=== PATIENT | female | born 1945 | race African-American/Black ===

== ENCOUNTER 2017-02-19 10:48 | Inpatient (IN) | payer MEDICARE, MEDICAID ==
[2017-02-19] MEDS ORDERED: Albuterol Sulfate 2.5 mg/3 ml Neb ONE (11:07)
[2017-02-19] MEDS ORDERED: Albuterol Sulfate 2.5 mg/0.5 ml Neb ONE (11:08)
[2017-02-19] MEDS ORDERED: methylPREDNISolone Sod Succ/PF 125 MG/2 ML VIAL ONE (11:15)
[2017-02-19] MEDS ORDERED: Water For Inject, Bacteriostat 30 ML ONE (11:15)
[2017-02-19] MEDS ORDERED: Magnesium Sulfate 2 GM/100 ML BAG ONE (11:15)
--- NOTE | 2017-02-19 11:19 | RAD ---
AP VIEW OF CHEST: Date: 02/19/17 INDICATION: Difficulty breathing and wheezing. COMPARISON: Prior exam dated 02/17/17. FINDINGS: There is stable mild cardiomegaly. No air space consolidation or pleural effusion is evident. No acut e osseous abnormality is evident. IMPRESSION: No acute cardiopulmonary abnormality. Stable cardiomegaly. POS: [facility]
[2017-02-19 11:20] LABS: #Basophils 0.1 thou/uL (0.0-0.2); #Eosinphils 0.1 thou/uL (0.0-0.7); #Lymphocytes 1.5 thou/uL (1.20-3.40); #Monocytes 0.6 thou/uL (0.11-0.59); %Basophils 0.9 % (0.0-1.0); %Eosinophils 0.8 % (0.0-10.0); %Lymphocytes 24.3 % (21.0-51.0); Hematocrit 35.4 % (36.0-47.0); Mean Platelet Volume 8.6 fL (7.4-10.4); Red Blood Cell (RBC) Count 3.71 mill/uL (4.20-5.40); White Blood Cell (WBC) Count 6.2 thou/uL (4.8-10.8)
[2017-02-19 11:33] LABS: ALT (SGPT) 24 U/L (8-55); AST (SGOT) 23 U/L (5-34); Alkaline Phosphatase 81 U/L (40-150); Anion Gap 11 mmol/L (10-20); BUN (Urea Nitrogen) 10 mg/dL (9.8-20.1); Bilirubin, Total 0.2 mg/dL (0.2-1.2); CK (CPK) 346 U/L (29-168); Calc. Creatinine Clearance 0 mL/min (70-130); Calcium 9.3 mg/dL (7.8-10.44); Carbon Dioxide 28 mmol/L (23-31); Chloride 106 mmol/L (98-107); Estimated GFR-MDRD 77; Globulin 3.8 g/dL (2.4-3.5); Protein, Total 7.4 g/dL (6.0-8.3)
[2017-02-19 11:37] LABS: Troponin I Less than 0.010 ng/mL (< 0.028)
--- NOTE | 2017-02-19 13:19 | HP ---
CHIEF COMPLAINT: Shortness of breath and cough. HISTORY OF PRESENT ILLNESS: The patient is a 71-year-old female who is admitted to the hospital with a few day history of productive cough with some chills and the patient felt feveris h. The above symptoms did not get any better after she visited emergency room in [place] a few days ago when she was placed on steroids and breathing treatments so the family decided to bring her to [facility] emergency room in [place]. There was not any nausea or vomiting. She has some headaches in the fro nt and the top of the head and her cough is productive of a mucous, no greenish yellowish color. PAST MEDICAL HISTORY: 1. Asthma. 2. Congestive heart failure. 3. Acid reflux. 4. Hyperlipidemia. 5. Hypertension. ALLERGIES: MORPHINE, BLOOD THINNERS of unclear type, ASPIRIN. Apparently increases the blood pressu re. Also, TRAMADOL causing the swelling, IBUPROFEN and NITROGLYCERIN. PAST SURGICAL HISTORY: Cholecystectomy. CURRENT MEDICATIONS: Omeprazole 20 mg once a day, ramipril 10 mg once a day, amiodarone 100 mg once a day and fluid pill, she does not know the name and the dose. FAMILY HISTORY: Father of prostate cancer at the age of 86 and mother was 85 when she passed of colon cancer. SOCIAL HISTORY: She never smoked. She does not drink any alcohol. She does not use any illicit [place] gs. REVIEW OF SYSTEMS: CONSTITUTIONAL. Positive for fever and chills. EYES: Negative for eye pain and positive for some eye discharge which is clear. ENT: Negative for epistaxis and nasal congestion. CARDIOVASCULAR: Negative for palpitations and chest pain. RESPIRATORY: Positive for shortness of breath and cough. GASTROINTESTINAL: Negative for nausea and vomiting. GENITOURINARY: Negative for hematuria and dysuria. DERMATOLOGY: Negative for itching or rash. NEUROLOGIC: Positive for headache. Negative for any focal deficits or numbness. PSYCHIATRIC: Negative for anxiety or depression. PHYSICAL EXAMINATION: VITAL SIGNS: Blood pressure is 145/62, pulse is 81, respiratory rate is 23. No pain. Temperature i s 98.8 and she is 96% on 2 liters by nasal cannula. HEENT: Head is atraumatic, normocephalic. Eyes PERRLA. Conjunctivae reddish. Sclerae nonicteric. Oral mucosa is moist. NECK: Supple, no JVD. LUNGS: Bilateral rales and dry crackles present and wheezing. HEART: S1, S2 normal. No S3, no S4. ABDOMEN: Soft, obese, nontender, nondistended, bowel sounds are present, no organomegaly. EXTREMITIES: No clubbing, cyanosis. There is 1+ peripheral edema, nonpitting, similar bilaterally. NEUROLOGIC: She is alert and oriented x4. There is not any motor or sensory deficits present. Cran ial nerves are intact. LABORATORY: Showed a white count of 6.2, hemoglobin 12.0, hematocrit 35.4, platelet count is 198,000 . Sodium was 142, potassium 3.2, chloride 106, CO2 28, BUN 10, creatinine 0.87. Creatinine kinase 3 46, globulin 3.8 and the rest of chemistry panel is within normal limits. Chest x-ray personally reviewed by me showed no acute cardiovascular problem. IMPRESSION: 1. Acute febrile illness with respiratory distress and pulmonary findings, most likely is asthma exa cerbation by viral infection of the upper airways. 2. Hypokalemia. 3. Hypertension. 4. History of congestive heart failure. 5. Gastroesophageal reflux disease. 6. Hyperlipidemia. PLAN: To admit her to full admission. Condition is fair. Activity: Bed rest with bathroom privile ges. IV Hep-Lock. Rocephin 1 gram q.24 hours, DuoNebs 1 nebulizer q.4h., Solu-Medrol. The patient received 1 dose of 125 mg IV push in the emergency room and she will be on 40 mg every 6h. IV push. We will identify her home meds fully because we have the partial for now and we will continue her med ications. Since she is on amiodarone I would like to admit her to telemetry bed. We will continue h er O2. We will use PUD prophylaxis with Pepcid 20 mg twice a day and DVT prophylaxis with SCDs and Lovenox 40 mg subcutaneously q.24 hours.
[2017-02-19 15:32] VITALS: BMI 42.3
[2017-02-19] MEDS ORDERED: cefTRIAXone\\ROCEPHIN 1 GM in Sodium Chloride 0.9% 100 ML IVPB SCH (15:40)
[2017-02-19] MEDS: cefTRIAXone\\ROCEPHIN 1 GM, Syringe 0.4 ML in Sterile Water 9.6 ML SLOW IVP SCH (16:25)
[2017-02-19] MEDS: Acetaminophen 500 MG TAB PO PRN ×2 (16:43→21:37)
[2017-02-19] MEDS ORDERED: FLU VACC TS2017-18 (>65YR) 0.5 ML SYRINGE IM ONE (17:00)
[2017-02-19] MEDS: Famotidine 20 MG TAB PO SCH (21:23)
[2017-02-19] MEDS ORDERED: methylPREDNISolone Sod Succ/PF 125 MG/2 ML VIAL IVP SCH (22:00)
[2017-02-20 06:43] LABS: Band 5 % (5-11); Mean Platelet Volume 8.7 fL (7.4-10.4); Neutrophil 77 % (42-75); Red Blood Cell (RBC) Count 3.43 mill/uL (4.20-5.40); White Blood Cell (WBC) Count 6.3 thou/uL (4.8-10.8)
[2017-02-20 06:50] LABS: ALT (SGPT) 23 U/L (8-55); AST (SGOT) 21 U/L (5-34); Alkaline Phosphatase 66 U/L (40-150); Anion Gap 12 mmol/L (10-20); BUN (Urea Nitrogen) 11 mg/dL (9.8-20.1); Bilirubin, Total 0.2 mg/dL (0.2-1.2); Calc. Creatinine Clearance 110 mL/min (70-130); Calcium 9.2 mg/dL (7.8-10.44); Carbon Dioxide 27 mmol/L (23-31); Chloride 107 mmol/L (98-107); Estimated GFR-MDRD 77; Globulin 3.4 g/dL (2.4-3.5); Protein, Total 6.6 g/dL (6.0-8.3)
[2017-02-20] MEDS ORDERED: HYDROcodone/Acetaminophen 10/325 mg Tablet PO PRN (08:03)
[2017-02-20] MEDS ORDERED: Sodium Chloride 0.9% 10 ML ONE (08:33)
[2017-02-20] MEDS: Torsemide 100 MG TAB PO SCH (09:35)
[2017-02-20] MEDS: Ramipril 5 MG CAP PO SCH (09:35)
[2017-02-20] MEDS: Famotidine 20 MG TAB PO SCH ×3 (09:35→20:10)
[2017-02-20] MEDS: Amiodarone 200 MG TAB PO SCH (09:35)
[2017-02-20] MEDS: Guaifenesin DM 100-10/5 ML UDCUP PO PRN ×2 (09:36→20:14)
[2017-02-20] MEDS: Enoxaparin Sodium 40 MG/0.4 ML SYRINGE SC SCH (09:44)
--- NOTE | 2017-02-20 11:49 | PRG ---
DATE OF SERVICE: 02/20/2017 SUBJECTIVE: The patient is seen and examined at the bedside. She complains about feeling cold. The temperature in the room is cold and thermostat is not working. Her shortness of breath improved to some extent, but she is still short of breath quite a bit. She does not have any pain to offer. OBJECTIVE: VITAL SIGNS: Blood pressure is 165/73, pulse is 80, temperature is 98.7, and respiratory rate is 20. She is on 2 liters by nasal cannula. GENERAL: She is obese lady, BMI of 42. HEENT: Atraumatic, normocephalic. Eyes: Pupils responding to light properly. Sclerae is nonicteri c. Conjunctivae pinkish. Oral mucosa is moist. NECK: Supple. No JVDs. LUNGS: Bilateral rales and wheezing present. HEART: S1, S2 normal, no S3, no S4. ABDOMEN: Obese, nontender, bowel sounds are present, no organomegaly. EXTREMITIES: 1+ peripheral edema similar bilaterally. NEUROLOGIC: She is alert and oriented x4. There is not any sensory or motor deficits present. LABORATORY DATA: Showed a white count of 6.3, hemoglobin of 10.8, hematocrit 33.0, platelet count is 185,000. Chemistry showed potassium of 3.5 and glucose of 150 with albumin of 3.2. The rest of adelnia daisha is within normal limits. MICROBIOLOGY: None. ASSESSMENT: 1. Acute exacerbation of asthma with some improvement. 2. Hypokalemia, corrected. 3. Hypertension, labile. 4. History of congestive heart failure. 5. Gastroesophageal reflux disease. 6. Hyperlipidemia. PLAN: Is to continue her O2 by 2 liters by nasal cannula. Continue Rocephin 1 gram every 24 hours, continue DuoNebs 1 nebulization q.4 hours. Continue Solu-Medrol 40 mg IV push every 6 hours and we w ill try to get her peak flow measured by Respiratory.
[2017-02-20] MEDS: cefTRIAXone\\ROCEPHIN 1 GM, Syringe 0.4 ML in Sterile Water 9.6 ML SLOW IVP SCH (16:51)
[2017-02-21] MEDS: Guaifenesin DM 100-10/5 ML UDCUP PO PRN ×2 (03:25→09:57)
[2017-02-21 06:11] LABS: Anion Gap 12 mmol/L (10-20); BUN (Urea Nitrogen) 22 mg/dL (9.8-20.1); Calc. Creatinine Clearance 82 mL/min (70-130); Calcium 9.6 mg/dL (7.8-10.44); Carbon Dioxide 31 mmol/L (23-31); Chloride 98 mmol/L (98-107); Estimated GFR-MDRD 55
[2017-02-21 06:35] LABS: Free T3 1.65 pg/mL (1.71-3.71)
[2017-02-21] MEDS: Enoxaparin Sodium 40 MG/0.4 ML SYRINGE SC SCH (09:02)
[2017-02-21] MEDS: Famotidine 20 MG TAB PO SCH ×2 (09:02→20:27)
[2017-02-21] MEDS: Amiodarone 200 MG TAB PO SCH (09:02)
[2017-02-21] MEDS: Ramipril 5 MG CAP PO SCH (09:03)
[2017-02-21] MEDS: Torsemide 100 MG TAB PO SCH (09:57)
[2017-02-21] MEDS: guaiFENesin/Codeine Phosphate 200 mg/20 mg 10 ml UD Cup PO PRN ×2 (14:30→20:28)
--- NOTE | 2017-02-21 15:02 | PRG ---
DATE OF SERVICE: 02/21/2017 SUBJECTIVE: The patient seen and examined at the bedside. She had a lot of coughing last night as s he could not sleep. She does not feel well. She said that she has been wheezing too. OBJECTIVE: VITAL SIGNS: Blood pressure is 135/68, pulse is 80, temperature is 98.2, O2 saturation is 98% on 2 l iters and respiratory rate is 18. HEENT: Head is atraumatic, normocephalic. Eyes are PERRLA. Sclerae nonicteric. Oral mucosa moist. NECK: Supple. LUNGS: On both bases, bilaterally wheezes present. Improved significantly from the day before. HEART: S1 and S2, somewhat distant, no S3, no S4. ABDOMEN: Obese, nontender, bowel sounds are present. EXTREMITIES: No clubbing, cyanosis or edema. NEUROLOGIC: She is alert and oriented x4. There are not any motor deficits. SKIN: No rash or erythema. LABORATORY DATA: Showed sodium of 138, potassium 3.0, chloride 98, CO2 31, BUN 22, creatinine 1.17, glucose 132, free T4 1.26, free T3 1.65, third generation TSH 0.2094. MICROBIOLOGY: None. IMPRESSION: 1. Acute exacerbation of asthma with some improvement and significantly decreased wheezing, on IV st eroids. We will decrease the dose to 20 mg every 6 hours and start her on Pulmicort inhaler inhalati ons twice a day. Also I am going to stop her guaifenesin and start guaifenesin with codeine and we w ill obtain peak flow by respiratory therapist and we will try to start on continuous positive airway pressure, most likely she has sleep apnea and she is very obese lady and body mass index is very high . 2. Hypokalemia, corrected. 3. Hypertension, labile. 4. History of congestive heart failure with normal BNP, stable. 5. Gastroesophageal reflux disease. 6. Hyperlipidemia. PLAN: As mentioned above. We will continue her IV Rocephin. Continue DuoNebs q.4, decrease the dos e of Solu-Medrol to 20 every 6 hours and start her on CPAP at night and Pulmicort twice a day inhalat ions.
[2017-02-21] MEDS: cefTRIAXone\\ROCEPHIN 1 GM, Syringe 0.4 ML in Sterile Water 9.6 ML SLOW IVP SCH (16:19)
[2017-02-21] MEDS: Budesonide 0.5 MG/2 ML NEB INH SCH (19:59)
[2017-02-22] MEDS ORDERED: Sodium Chloride 0.9% 10 ML ONE ×2 (00:40→05:21)
[2017-02-22] MEDS: guaiFENesin/Codeine Phosphate 200 mg/20 mg 10 ml UD Cup PO PRN ×3 (05:29→20:53)
[2017-02-22 05:33] LABS: Anion Gap 17 mmol/L (10-20); BUN (Urea Nitrogen) 23 mg/dL (9.8-20.1); Calc. Creatinine Clearance 74 mL/min (70-130); Calcium 9.5 mg/dL (7.8-10.44); Carbon Dioxide 29 mmol/L (23-31); Chloride 97 mmol/L (98-107); Estimated GFR-MDRD 53
[2017-02-22] MEDS: Enoxaparin Sodium 40 MG/0.4 ML SYRINGE SC SCH (08:10)
[2017-02-22] MEDS: Famotidine 20 MG TAB PO SCH ×2 (08:10→20:53)
[2017-02-22] MEDS: Amiodarone 200 MG TAB PO SCH (08:10)
[2017-02-22] MEDS: Ramipril 5 MG CAP PO SCH (08:11)
[2017-02-22] MEDS: Budesonide 0.5 MG/2 ML NEB INH SCH ×2 (10:51→18:49)
--- NOTE | 2017-02-22 11:12 | PDOC.PN ---
- Subjective Encounter Start Date: 02/22/17 Encounter Start Time: 11:11 Subjective: patient seen and examined complaining of some difficultywith swallowing -: food - Objective Resuscitation Status: Resuscitation Status FULL:Full Resuscitation Vital Signs & Weight: Vital Signs (12 hours) Temp Pulse Resp BP Pulse Ox 02/22/17 10:52 95 02/22/17 10:50 52 L 18 95 02/22/17 08:07 98.0 F 75 17 129/61 99 02/22/17 04:00 98.3 F 56 L 18 134/63 97 02/22/17 00:00 20 Weight Weight 244 lb 9.6 oz I&O: 02/21/17 02/22/17 02/23/17 06:59 06:59 06:59 Intake Total 1630 1480 Output Total 2700 2000 Balance -1070 -520 Result Diagrams: 02/20/17 05:36 02/22/17 04:08 Phys Exam - Physical Examination Constitutional: NAD HEENT: PERRLA, moist MMs, sclera anicteric, TM's clear Neck: no nodes, supple, full ROM full neck with ? thyroid enlargement Respiratory: wheezing present, clear to auscultation bilateral Cardiovascular: RRR, no significant murmur Gastrointestinal: soft, non-tender, no distention, positive bowel sounds Musculoskeletal: no edema, pulses present Neurological: non-focal, normal sensation, moves all 4 limbs Dx/Plan (1) Neck mass Code(s): R22.1 - LOCALIZED SWELLING, MASS AND LUMP, NECK Status: Acute (2) Thyroid mass of unclear etiology Code(s): E07.89 - OTHER SPECIFIED DISORDERS OF THYROID Status: Acute (3) Asthma Code(s): J45.909 - UNSPECIFIED ASTHMA, UNCOMPLICATED Status: Acute (4) Asthma attack Code(s): J45.901 - UNSPECIFIED ASTHMA WITH (ACUTE) EXACERBATION Status: Acute (5) Obesity Code(s): E66.9 - OBESITY, UNSPECIFIED Status: Acute (6) Hypertension Code(s): I10 - ESSENTIAL (PRIMARY) HYPERTENSION Status: Acute - Plan plan discussed w/ family, continue antibiotics, 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
--- NOTE | 2017-02-22 16:28 | ULT ---
ULTRASOUND THYROID: Date: 02/22/17 HISTORY: Dysphagia in 71-year-old female. COMPARISON: Thyroid ultrasound of 11/08/08. FINDINGS: Isthmus: 0.4 cm anteroposterior. Right Lobe: 5 x 2 x 2 cm. Left Lobe: 4.8 x 1.5 x 2 cm. In the right lower pole, there is a well-circumscribed, wider than tall, predominantly solid nodule m easuring approximately 1.7 x 1.4 x 1.2 cm. This may or may not correspond to a similar sized lesion i n this location with similar shape, in 2009. This probably corresponds to that lesion, and therefore this would be benign. There are no associated calcifications (were it not for the previous ultrasound , this would be a TIRADS Level TR3). In the contralateral left lower pole, there is a round, hypoechoic, 0.8 x 0.8 x 0.7 cm lesion which i s partially cystic, but also contains material of intermediate echogenicity. This was not present in 2009. The TIRADS score would be: Composition 1, echogenicity 2, shape 0, margin 0, and echogenic foci 0, for a total of TIRADS Level TR3. The recommendation for TR3 lesions would be fine needle aspirati on if greater than or equal to 2.5 cm, and follow-up if greater than or equal to 1.5 cm. This is sign ificantly smaller than that threshold, and therefore no further follow-up is recommended. The other nodules demonstrated on the 2009 ultrasound are not visualized on the current ultrasound. IMPRESSION: 1. Thyroid gland is within normal limits of size. 2. Two nodules, one on each side of the lower poles, which do not require biopsy or follow-up. POS: [facility]
[2017-02-23] MEDS: Budesonide 0.5 MG/2 ML NEB INH SCH (06:53)
[2017-02-23] MEDS: Enoxaparin Sodium 40 MG/0.4 ML SYRINGE SC SCH (08:46)
[2017-02-23] MEDS: Amiodarone 200 MG TAB PO SCH (08:46)
[2017-02-23] MEDS: Famotidine 20 MG TAB PO SCH (08:46)
[2017-02-23] MEDS: Ramipril 5 MG CAP PO SCH (08:47)
[2017-02-23] MEDS: guaiFENesin/Codeine Phosphate 200 mg/20 mg 10 ml UD Cup PO PRN (10:20)
--- NOTE | 2017-02-23 10:59 | DIS ---
DATE OF ADMISSION: 02/19/2017 DATE OF DISCHARGE: 02/23/2017 DISCHARGE DIAGNOSES: 1. Acute bronchitis, improved. 2. Asthma exacerbation, improved. 3. Benign thyroid nodule, stable. 4. Hypertension, stable. 5. Gastroesophageal reflux disease, stable. 6. Hypertension, stable. CONSULTATIONS: None. PERTINENT LAB AND X-RAY FINDINGS: Potassium ranged between 3.0-3.5, creatinine ranged between 0.87-1 .21. Estimated GFR ranged between 53-77, TSH 0.21, free T3 1.65. Free T4 1.26. CBC showed a hemogl obin ranging between 10.8-12.0. Portable chest x-ray dated 02/19/2017 showed no acute cardiopulmonar y process. Thyroid ultrasound dated 02/22/2017 showed 2 nodules on each of the lower poles stable si nce 2008. HOSPITAL COURSE: The patient was initially admitted to the telemetry unit after presenting with shor tness of breath and cough in the context of likely acute bronchitis with asthma exacerbation. The pa tient was given IV Solu-Medrol as well as bronchodilator therapy and Pulmicort nebulized solution. T he patient was also treated empirically with IV antibiotic therapy including Levaquin and monitored c linically. The patient was slow to clinically improve with pulmonary supportive measures; however, n o specific evidence of acute infiltrate on chest imaging. The patient underwent evaluation of a thyr oid nodule after the patient complained of mild dysphagia. Thyroid ultrasound showed evidence of sta ble benign thyroid nodules without significant change in appearance from prior thyroid ultrasound viviane ging from 2008. Overall, the patient did remain clinically stable through the remainder of the hospi junito course, tolerating regular oral intake, voiding appropriately and ready for discharge on 02/24/20 17. DISCHARGE MEDICATIONS: 1. Amiodarone 200 mg 1 tab p.o. daily. 2. Mucinex DM 1 tablet p.o. b.i.d. 3. [place] 10/325 mg 1 tab p.o. q.6h. p.r.n. pain. 4. Combivent Respimat 1 puff inhaled q.i.d. 5. Levaquin 500 mg 1 tab p.o. daily x5 days. 6. Omeprazole 20 mg 1 tab p.o. daily. 7. Klor-Con 10 mEq p.o. b.i.d. 8. Prednisone 20 mg 2 tabs p.o. daily x 3 days, followed by 1 tab p.o. daily x 3 days, followed by h levon a tab p.o. daily x3 days. 9. Ramipril 10 mg 1 tab p.o. daily. 10. Demadex 100 mg 1 tab p.o. daily. 11. Ventolin HFA 1 puff inhaled q.i.d. p.r.n. FOLLOWUP: The patient will follow up with Dr. Lemuel Kelly within 7 days of discharge. CONDITION ON DISCHARGE: Stable. ACTIVITY: Ad hamzah. DIET: Heart healthy. CODE STATUS: Full. DISPOSITION: Home on 02/23/2017. Total time preparing and coordinating discharge 32 minutes.
[2017-02-23 14:15] VITALS: BP 123/58; TEMP 98
== END 2017-02-23 14:25 | disposition home or self-care (01) | DRG 202 ==
LOC: ERS 10:48 → 2NO 15:11
PROVIDERS: ADMIT Internal Medicine; ATTEND Internal Medicine
DX: J20.9 Acute bronchitis, unspecified (principal); J45.901 Unspecified asthma with (acute) exacerbation; I11.0 Hypertensive heart disease with heart failure; I50.42 Chronic combined systolic (congestive) and diastolic (congestive) heart failure; Z68.41 Body mass index [BMI] 40.0-44.9, adult; K21.9 Gastro-esophageal reflux disease without esophagitis; E04.1 Nontoxic single thyroid nodule; E87.6 Hypokalemia; E66.9 Obesity, unspecified
CPT/HCPCS: 36415; 71010; 76536; 80048; 80053; 82553; 83880; 84439; 84443; 84481; 84484; 85007; 85025; 85027; 93005; 94640; 94644; 94760; 96365; 96366; 96375; A4216; J0696; J1650; J2920; J2930; J3475; J7611; J7620; J7626

== ENCOUNTER 2017-05-17 21:16 | Emergency (ER) | payer MEDICARE, MEDICAID ==
[2017-05-17 22:14] LABS: ALT (SGPT) 25 U/L (8-55); AST (SGOT) 21 U/L (5-34); Albumin 4.3 g/dL (3.4-4.8); Alkaline Phosphatase 83 U/L (40-150); Anion Gap 17 mmol/L (10-20); BUN (Urea Nitrogen) 45 mg/dL (9.8-20.1); Bilirubin, Total 0.2 mg/dL (0.2-1.2); Calc. Creatinine Clearance 0 mL/min (70-130); Calcium 10.4 mg/dL (7.8-10.44); Carbon Dioxide 27 mmol/L (23-31); Chloride 96 mmol/L (98-107); Estimated GFR-MDRD 36; Globulin 3.8 g/dL (2.4-3.5); Glucose 117 mg/dL (83-110); Potassium 3.2 mmol/L (3.5-5.1); Protein, Total 8.1 g/dL (6.0-8.3); Sodium 137 mmol/L (136-145)
[2017-05-17] MEDS ORDERED: Acetaminophen/Codeine 30-300mg Tablet ONE (22:22)
--- NOTE | 2017-05-17 22:54 | RAD ---
LEFT HIP THREE VIEWS: History: Hip pain. FINDINGS: Femoral head contour is preserved. There are mild degenerative changes at the hip with joint narrowin g. No evidence of fracture identified. IMPRESSION: No acute fracture identified. POS: [facility]
[2017-05-17] MEDS ORDERED: Potassium Bicarbonate/Cit Ac 25 MEQ TAB PO SCH (23:00)
[2017-05-17] MEDS ORDERED: Pot Chloride/Pot Bicarb/Cit Ac 25 mEq Effervescent Tablet ONE (23:04)
--- NOTE | 2017-05-17 23:11 | ULT ---
LEFT LOWER EXTREMITY VENOUS DUPLEX EXAM: Technique: The veins of the left lower extremity evaluated with color doppler, spectral analysis and compression. History: Left leg pain and edema. Recent fall. FINDINGS: Deep veins of the left lower extremity show normal compression and blood flow. No evidence of DVT. Fl uid collection in the left popliteal fossa measuring 2-3 cm, possibly a Gutierrez's cyst. IMPRESSION: No evidence of left lower extremity DVT. POS: [facility]
== END 2017-05-17 23:18 | disposition home or self-care (01) ==
LOC: ERS 21:16
DX: M16.12 Unilateral primary osteoarthritis, left hip (principal); M17.12 Unilateral primary osteoarthritis, left knee; I48.91 Unspecified atrial fibrillation; I11.0 Hypertensive heart disease with heart failure; I50.9 Heart failure, unspecified; J45.909 Unspecified asthma, uncomplicated; K21.9 Gastro-esophageal reflux disease without esophagitis; F17.220 Nicotine dependence, chewing tobacco, uncomplicated
CPT/HCPCS: 36415; 80053

== ENCOUNTER 2022-01-15 14:51 | Inpatient (IN) | payer MEDICARE, MEDICAID ==
[2022-01-15 15:06] LABS: Actual Bicarbonate (HCO3a) 27.4 mEq/L (22-28); Analyzer IN Cardio ER; Base Excess (BEa) 4.5 mEq/L (-2.0 to +3.0); CO2 Tension 34.9 mmHg (35.0-45.0); Calcium, Ionized (arterial) 1.17 mmol/L (1.12-1.30); Carboxyhemoglobin (COHb) 0.3 gm% (0.0-3.0); Hemoglobin (Hb) 13.9 g/dL (12.0-16.0); O2 Tension (PaO2), arterial 297.1 mmHg (> 70.0); pH, Arterial 7.51 (7.35-7.45)
[2022-01-15 15:11] LABS: ALV-art Gradient 229.675 mmHg (0-20); Potassium - ABG Lab 2.45 mmol/L (3.70-5.30); Puncture Site RRA
[2022-01-15] MEDS ORDERED: DOPamine 400 MG/D5W 250 ML 250 ML ONE (15:25)
[2022-01-15] MEDS ORDERED: Potassium Chloride 20 MEQ/100 ML PREMIX BAG ONE (16:03)
[2022-01-15 16:27] LABS: ALT (SGPT) 27 U/L (8-55); AST (SGOT) 46 U/L (5-34); Albumin 3.8 g/dL (3.4-4.8); Alkaline Phosphatase 88 U/L (40-110); Anion Gap 15 mmol/L (10-20); BUN (Urea Nitrogen) 12 mg/dL (9.8-20.1); Bilirubin, Total 0.8 mg/dL (0.2-1.2); Calc. Creatinine Clearance 0 mL/min (70-130); Calcium 9.8 mg/dL (7.8-10.44); Carbon Dioxide 26 mmol/L (23-31); Chloride 103 mmol/L (98-107); Estimated GFR 55; Globulin 4.3 g/dL (2.4-3.5); Glucose 122 mg/dL (83-110); Potassium 2.7 mmol/L (3.5-5.1); Protein, Total 8.1 g/dL (5.8-8.1); Sodium 141 mmol/L (136-145)
[2022-01-15 16:49] LABS: CKMB 3.5 ng/mL (0-6.6)
[2022-01-15 16:52] LABS: SARS-CoV-2 NAA Rapid Test Not Detected (NotDetected)
[2022-01-15] MEDS ORDERED: Propofol 1,000 MG/100 ML VIAL IV ONE ×2 (16:55→19:09)
[2022-01-15] MEDS ORDERED: Electrolyte Replacement Protocol 1 EACH FS ONE (17:28)
[2022-01-15] MEDS ORDERED: Electrolyte Replacement Protocol FS PRN (17:30)
[2022-01-15] MEDS ORDERED: FENTANYL 50 MCG/ML 1 ML VIAL ONE (17:36)
[2022-01-15] MEDS: DOPamine 400 MG/D5W 250 ML 250 ML IVPB SCH (17:50)
[2022-01-15] MEDS ORDERED: Fentanyl CADD 100 ML IV SCH ×2 (18:00→19:45)
[2022-01-15 18:09] LABS: Magnesium 1.6 mg/dL (1.6-2.6)
[2022-01-15] MEDS ORDERED: FLU VACC QS2022-23(65YR UP)/PF 240 MCG/0.7 ML SYRINGE IM ONE (19:15)
[2022-01-15] MEDS ORDERED: Midazolam HCl 2 mg/2 ml Vial SLOW IVP PRN (19:42)
[2022-01-15] MEDS ORDERED: DISCONTINUE PREVIOUS NARCOTIC PAIN MEDICATIONS AND BENZODIAZEPINES FS SCH (19:45)
[2022-01-15] MEDS ORDERED: Propofol BOLUS 1,000 MG/100 ML VIAL IV PRN (19:45)
[2022-01-15] MEDS ORDERED: Morphine 4 MG/ML VIAL SLOW IVP PRN (19:45)
[2022-01-15] MEDS ORDERED: Ventilator Sedation Protocol 1 EACH FS SCH (19:45)
[2022-01-15] MEDS ORDERED: Fentanyl BOLUS 250 ML IVPB PRN (19:45)
[2022-01-15] MEDS ORDERED: niCARdipine 50 MG in Sodium Chloride 0.9% 250 ML 230 ML IVPB SCH (20:00)
[2022-01-15] MEDS ORDERED: Magnesium 2 GM/50 ML(in water) 2 GM in Premix Bag 1 BAG IVPB SCH (20:00)
[2022-01-15] MEDS ORDERED: SODIUM CHLORIDE 0.9% IVPB SCH (20:00)
[2022-01-15] MEDS ORDERED: NICARDIPINE IVPB SCH (20:00)
[2022-01-15] MEDS: Potassium Chloride 20 MEQ in Premix Bag 1 BAG IVPB SCH ×2 (20:13→21:16)
[2022-01-15 20:45] LABS: Troponin I 0.248 ng/mL (< 0.028)
[2022-01-15 20:49] LABS: Anion Gap 17 mmol/L (10-20); BUN (Urea Nitrogen) 10 mg/dL (9.8-20.1); Calc. Creatinine Clearance 84 mL/min (70-130); Carbon Dioxide 25 mmol/L (23-31); Chloride 106 mmol/L (98-107); Estimated GFR 59; Glucose 150 mg/dL (83-110); Potassium 2.7 mmol/L (3.5-5.1); Sodium 145 mmol/L (136-145)
[2022-01-15 21:27] LABS: Acetaminophen Less than 10.0 mcg/mL (10.0-30.0); Alcohol Less than 10 mg/dL (Less than 10); Salicylate Less than 8.0 mg/dL (15.0-30.0)
[2022-01-15 21:30] LABS: Calcium 10.4 mg/dL (7.8-10.44)
[2022-01-15 21:33] LABS: Phosphorus 2.1 mg/dL (2.3-4.7)
[2022-01-15 21:40] LABS: Bilirubin Negative (Negative); Blood, Urine Trace (Negative); Clarity Clear (Clear); Glucose, Urine (Dipstick) Normal (Negative); Ketone, Urine 10 mg/dL (Negative); Leukocyte Negative Leu/uL (Negative); Nitrite Negative (Negative); Protein, Urine (Dipstick) 70 mg/dL (Neg-Trace); Specific Gravity, Urine 1.007 (1.002-1.036); Urobilinogen Normal mg/dL (Less than 2)
[2022-01-15 21:41] LABS: Bacteria/HPF None Seen HPF (None Seen); RBC/HPF 0-3 HPF (0-3); Squamous Epithelial None Seen HPF (0-3); WBC/HPF 0-3 HPF (0-3)
[2022-01-15] MEDS: Propofol 1,000 MG/100 ML VIAL IV PRN (23:02)
[2022-01-16] MEDS: DOPamine 400 MG/D5W 250 ML 250 ML IVPB SCH (02:00)
[2022-01-16] MEDS: Propofol 1,000 MG/100 ML VIAL IV PRN ×2 (02:07→05:20)
[2022-01-16 04:03] LABS: #Basophils 0.1 thou/uL (0.0-0.2); #Monocytes 0.8 thou/uL (0.11-0.59); %Basophils 0.4 % (0.0-1.0); %Eosinophils 0.2 % (0.0-10.0); %Lymphocytes 8.7 % (21.0-51.0); %Neutrophils 83.7 % (42.0-75.0); Hemoglobin 14.8 g/dL (12.0-16.0); Mean Corpuscular HGB CONC 32.7 g/dL (32.0-36.0); Mean Corpuscular Volume 91.8 fl (78.0-98.0); Mean Platelet Volume 9.4 fL (7.4-10.4); Platelet Count 207 10x3/uL (130-400); RBC Distribution Width 12.2 % (11.5-14.5); Red Blood Cell (RBC) Count 4.92 mill/uL (4.20-5.40); White Blood Cell (WBC) Count 11.9 10x3/uL (4.8-10.8)
[2022-01-16 04:34] LABS: ALT (SGPT) 22 U/L (8-55); AST (SGOT) 29 U/L (5-34); Albumin 3.8 g/dL (3.4-4.8); Alkaline Phosphatase 87 U/L (40-110); Anion Gap 16 mmol/L (10-20); BUN (Urea Nitrogen) 9 mg/dL (9.8-20.1); Bilirubin, Total 0.8 mg/dL (0.2-1.2); Calc. Creatinine Clearance 82 mL/min (70-130); Calcium 9.9 mg/dL (7.8-10.44); Carbon Dioxide 26 mmol/L (23-31); Chloride 104 mmol/L (98-107); Estimated GFR 58; Globulin 4.5 g/dL (2.4-3.5); Glucose 167 mg/dL (83-110); Magnesium 2.1 mg/dL (1.6-2.6); Protein, Total 8.3 g/dL (5.8-8.1); Sodium 143 mmol/L (136-145)
[2022-01-16] MEDS: Potassium Chloride 20 MEQ in Premix Bag 1 BAG IVPB SCH ×2 (05:20→06:51)
[2022-01-16 07:57] LABS: Actual Bicarbonate (HCO3a) 27.1 mEq/L (22-28); Base Excess (BEa) 4.7 mEq/L (-2.0 to +3.0); CO2 Tension 33.8 mmHg (35.0-45.0); Calcium, Ionized (arterial) 1.19 mmol/L (1.12-1.30); Carboxyhemoglobin (COHb) 0.7 gm% (0.0-3.0); Hemoglobin (Hb) 15.9 g/dL (12.0-16.0); O2 Tension (PaO2), arterial 115.3 mmHg (> 70.0); Potassium - ABG Lab 2.97 mmol/L (3.70-5.30); pH, Arterial 7.52 (7.35-7.45)
[2022-01-16 07:58] LABS: Puncture Site LRA
[2022-01-16] MEDS ORDERED: Enoxaparin Sodium 40 MG/0.4 ML SYRINGE SC SCH (09:00)
[2022-01-16] MEDS: Pantoprazole 40 MG VIAL IVP SCH ×2 (09:02→21:09)
[2022-01-16] MEDS: Acetaminophen 500 MG TAB PO PRN ×2 (12:21→21:07)
[2022-01-16 12:52] LABS: Potassium 2.9 mmol/L (3.5-5.1)
[2022-01-16] MEDS: Potassium Chloride 40 MEQ in Sodium Chloride 0.9% 250 ML 250 ML IVPB SCH ×2 (14:02→18:00)
[2022-01-16] MEDS: Enoxaparin Sodium 120 MG/0.8 ML SYRINGE SC SCH (21:10)
[2022-01-17 04:48] LABS: ALT (SGPT) 13 U/L (8-55); AST (SGOT) 15 U/L (5-34); Albumin 3.2 g/dL (3.4-4.8); Alkaline Phosphatase 70 U/L (40-110); Anion Gap 10 mmol/L (10-20); BUN (Urea Nitrogen) 16 mg/dL (9.8-20.1); Bilirubin, Total 1.3 mg/dL (0.2-1.2); Calc. Creatinine Clearance 70 mL/min (70-130); Calcium 8.9 mg/dL (7.8-10.44); Carbon Dioxide 30 mmol/L (23-31); Chloride 107 mmol/L (98-107); Estimated GFR 48; Globulin 3.8 g/dL (2.4-3.5); Glucose 105 mg/dL (83-110); Magnesium 2.1 mg/dL (1.6-2.6); Potassium 3.3 mmol/L (3.5-5.1); Sodium 144 mmol/L (136-145)
[2022-01-17 04:49] LABS: Band 3 % (5-11); Hemoglobin 12.9 g/dL (12.0-16.0); Lymphocytes 16 % (21-51); MDiff Complete? YES; Mean Corpuscular HGB CONC 32.5 g/dL (32.0-36.0); Mean Corpuscular Hemoglobin 30.5 pg (27.0-31.0); Mean Platelet Volume 8.9 fL (7.4-10.4); Monocytes 5 % (0-10); Neutrophil 74 % (42-75); Platelet Count 177 10x3/uL (130-400); Platelet Morphology Comment Appears Adequate; RBC Distribution Width 12.5 % (11.5-14.5); RBC Morphology Normal; Reactive Lymphocytes 2 % (0-10); Red Blood Cell (RBC) Count 4.23 mill/uL (4.20-5.40); White Blood Cell (WBC) Count 14.8 10x3/uL (4.8-10.8)
[2022-01-17] MEDS ORDERED: Potassium Chloride 40 MEQ in Premix Bag 1 BAG IVPB SCH (05:45)
[2022-01-17] MEDS: Acetaminophen 500 MG TAB PO PRN (09:29)
[2022-01-17] MEDS: Enoxaparin Sodium 120 MG/0.8 ML SYRINGE SC SCH ×2 (09:31→21:56)
[2022-01-17] MEDS: Pantoprazole 40 MG VIAL IVP SCH (09:31)
[2022-01-17] MEDS: Rosuvastatin 20 MG TAB PO SCH (21:57)
[2022-01-17] MEDS: Lisinopril 5 MG TAB PO SCH (21:57)
[2022-01-18 04:43] LABS: #Basophils 0.1 thou/uL (0.0-0.2); #Eosinphils 0.3 thou/uL (0.0-0.7); #Lymphocytes 2.2 thou/uL (1.20-3.40); #Monocytes 1.1 thou/uL (0.11-0.59); #Neutrophils 7.3 thou/uL (1.40-6.50); %Basophils 0.6 % (0.0-1.0); %Eosinophils 2.5 % (0.0-10.0); %Lymphocytes 20.2 % (21.0-51.0); %Monocytes 9.8 % (0.0-10.0); %Neutrophils 66.8 % (42.0-75.0); Hemoglobin 12.3 g/dL (12.0-16.0); Mean Corpuscular HGB CONC 32.1 g/dL (32.0-36.0); Mean Corpuscular Hemoglobin 30.3 pg (27.0-31.0); Mean Corpuscular Volume 94.4 fl (78.0-98.0); Mean Platelet Volume 9.4 fL (7.4-10.4); Platelet Count 175 10x3/uL (130-400); RBC Distribution Width 12.3 % (11.5-14.5); Red Blood Cell (RBC) Count 4.06 mill/uL (4.20-5.40); White Blood Cell (WBC) Count 10.9 10x3/uL (4.8-10.8)
[2022-01-18 05:16] LABS: ALT (SGPT) 12 U/L (8-55); AST (SGOT) 13 U/L (5-34); Albumin 3.1 g/dL (3.4-4.8); Alkaline Phosphatase 62 U/L (40-110); Anion Gap 10 mmol/L (10-20); BUN (Urea Nitrogen) 14 mg/dL (9.8-20.1); Bilirubin, Total 0.8 mg/dL (0.2-1.2); Calc. Creatinine Clearance 95 mL/min (70-130); Calcium 9.1 mg/dL (7.8-10.44); Carbon Dioxide 27 mmol/L (23-31); Cardiac Risk 4.8 (Less than 4.5); Chloride 105 mmol/L (98-107); Cholesterol 189 mg/dl (< 200 Desired); Estimated GFR 65; Globulin 3.7 g/dL (2.4-3.5); Glucose 81 mg/dL (83-110); HDL Cholesterol 39 mg/dL (>60 Neg Risk); LDL Cholesterol, Calculated 123 mg/dL; Potassium 3.5 mmol/L (3.5-5.1); Protein, Total 6.8 g/dL (5.8-8.1); Sodium 138 mmol/L (136-145); Triglycerides 135 mg/dL (Less than 150)
[2022-01-18] MEDS ORDERED: Potassium Chloride 20 MEQ TAB PO SCH (06:00)
[2022-01-18] MEDS: Lisinopril 5 MG TAB PO SCH ×2 (08:27→20:38)
[2022-01-18] MEDS: Furosemide 40 MG TAB PO SCH (08:27)
[2022-01-18] MEDS: Enoxaparin Sodium 120 MG/0.8 ML SYRINGE SC SCH ×2 (08:28→20:38)
[2022-01-18] MEDS ORDERED: Ketorolac Tromethamine 30 MG/ML VIAL IVP PRN (10:23)
[2022-01-18] MEDS: Acetaminophen 500 MG TAB PO PRN (11:15)
[2022-01-18] MEDS ORDERED: Sodium Chloride 0.9% 1,000 ML IV SCH (13:30)
[2022-01-18] MEDS ORDERED: Communication Order-Pharmacy FS PRN (13:30)
[2022-01-18] MEDS: Rosuvastatin 20 MG TAB PO SCH (20:37)
[2022-01-18] MEDS: Cefdinir 300 MG CAP PO SCH (20:37)
[2022-01-18] MEDS ORDERED: Transdermal Patch Removal TOP SCH (21:00)
[2022-01-19] MEDS: Acetaminophen 500 MG TAB PO PRN ×2 (00:33→20:35)
[2022-01-19] MEDS ORDERED: Sodium Chloride 0.9% 1,000 ML IV SCH (06:00)
[2022-01-19] MEDS: Cefdinir 300 MG CAP PO SCH ×2 (06:21→20:35)
[2022-01-19] MEDS: Lisinopril 5 MG TAB PO SCH ×2 (06:21→20:35)
[2022-01-19] MEDS: Furosemide 40 MG TAB PO SCH (06:22)
[2022-01-19] MEDS ORDERED: Iopamidol 370 76% 100 ML VIAL ONE (08:37)
[2022-01-19] MEDS ORDERED: Lidocaine 5% Patch TD SCH (09:00)
[2022-01-19 09:54] VITALS: BMI 41.3
[2022-01-19] MEDS ORDERED: Nitroglycerin 100MG/250ML BOT 250 ML ONE (13:02)
[2022-01-19] MEDS ORDERED: Verapamil 5 MG/2 ML VIAL ONE (13:02)
[2022-01-19] MEDS ORDERED: Heparin 10,000 UNITS/ 10 ML VIAL ONE (13:02)
[2022-01-19] MEDS ORDERED: Lidocaine 1% (PF) 30 ML VIAL ONE (13:02)
[2022-01-19] MEDS ORDERED: Midazolam HCl 2 mg/2 ml Vial ONE (13:02)
[2022-01-19] MEDS ORDERED: FENTANYL 50 MCG/ML 1 ML VIAL ONE (13:02)
[2022-01-19] MEDS ORDERED: Iopamidol-370 76% 500 ML 1 ML ONE (14:22)
[2022-01-19] MEDS ORDERED: Sodium Chloride 0.9% 200 ML IV PRN (14:26)
[2022-01-19] MEDS ORDERED: Sodium Chloride 0.9% 500 ML IV SCH (14:30)
[2022-01-19] MEDS: Lidocaine 5% Patch TD SCH (16:11)
[2022-01-19] MEDS: Rosuvastatin 20 MG TAB PO SCH (20:35)
[2022-01-20] MEDS: Transdermal Patch Removal TOP SCH (03:58)
[2022-01-20] MEDS: Furosemide 40 MG TAB PO SCH (07:53)
[2022-01-20 07:54] LABS: #Eosinphils 0.2 thou/uL (0.0-0.7); #Lymphocytes 1.4 thou/uL (1.20-3.40); #Neutrophils 4.6 thou/uL (1.40-6.50); %Basophils 0.7 % (0.0-1.0); %Eosinophils 2.9 % (0.0-10.0); %Lymphocytes 18.9 % (21.0-51.0); %Monocytes 13.4 % (0.0-10.0); %Neutrophils 64.1 % (42.0-75.0); Hemoglobin 13.1 g/dL (12.0-16.0); Mean Corpuscular HGB CONC 31.8 g/dL (32.0-36.0); Mean Corpuscular Hemoglobin 29.7 pg (27.0-31.0); Mean Corpuscular Volume 93.4 fl (78.0-98.0); Mean Platelet Volume 9.1 fL (7.4-10.4); Platelet Count 206 10x3/uL (130-400); RBC Distribution Width 12.1 % (11.5-14.5); White Blood Cell (WBC) Count 7.1 10x3/uL (4.8-10.8)
[2022-01-20] MEDS: Cefdinir 300 MG CAP PO SCH ×2 (07:54→21:56)
[2022-01-20] MEDS: Lisinopril 5 MG TAB PO SCH (07:54)
[2022-01-20] MEDS: Acetaminophen 500 MG TAB PO PRN ×2 (07:54→16:18)
[2022-01-20 08:11] LABS: Anion Gap 12 mmol/L (10-20); BUN (Urea Nitrogen) 14 mg/dL (9.8-20.1); Calc. Creatinine Clearance 90 mL/min (70-130); Calcium 9.5 mg/dL (7.8-10.44); Carbon Dioxide 24 mmol/L (23-31); Chloride 105 mmol/L (98-107); Estimated GFR 63; Glucose 139 mg/dL (83-110); Potassium 3.4 mmol/L (3.5-5.1); Sodium 138 mmol/L (136-145)
[2022-01-20] MEDS ORDERED: Potassium Chloride 20 MEQ TAB PO SCH (15:00)
[2022-01-20] MEDS: Lidocaine 5% Patch TD SCH (15:03)
[2022-01-20] MEDS ORDERED: NIFEdipine XL 30 MG TAB PO SCH (15:20)
[2022-01-20 19:24] LABS: Potassium 3.7 mmol/L (3.5-5.1)
[2022-01-20] MEDS: Rosuvastatin 20 MG TAB PO SCH (21:56)
[2022-01-21] MEDS: Lisinopril 10 MG TAB PO SCH ×2 (01:13→10:10)
[2022-01-21] MEDS: Transdermal Patch Removal TOP SCH ×2 (04:52→20:55)
[2022-01-21 05:27] LABS: Phosphorus 3.3 mg/dL (2.3-4.7)
[2022-01-21 05:29] LABS: Anion Gap 12 mmol/L (10-20); BUN (Urea Nitrogen) 13 mg/dL (9.8-20.1); Calc. Creatinine Clearance 95 mL/min (70-130); Calcium 9.8 mg/dL (7.8-10.44); Carbon Dioxide 30 mmol/L (23-31); Chloride 102 mmol/L (98-107); Estimated GFR 68; Glucose 99 mg/dL (83-110); Magnesium 1.9 mg/dL (1.6-2.6); Potassium 3.6 mmol/L (3.5-5.1); Sodium 140 mmol/L (136-145)
[2022-01-21] MEDS: Cefdinir 300 MG CAP PO SCH ×2 (10:08→20:55)
[2022-01-21] MEDS: Acetaminophen 500 MG TAB PO PRN ×2 (10:08→16:13)
[2022-01-21] MEDS: NIFEdipine XL 30 MG TAB PO SCH ×2 (10:10→12:07)
[2022-01-21] MEDS: Furosemide 40 MG TAB PO SCH (10:12)
[2022-01-21] MEDS ORDERED: Magnesium 2 GM/50 ML(in water) 2 GM in Premix Bag 1 BAG IVPB SCH (11:45)
[2022-01-21] MEDS: Lidocaine 5% Patch TD SCH (12:01)
[2022-01-21] MEDS: Lisinopril 5 MG TAB PO SCH (20:55)
[2022-01-21] MEDS: Rosuvastatin 20 MG TAB PO SCH (20:55)
[2022-01-22 04:42] LABS: Anion Gap 13 mmol/L (10-20); BUN (Urea Nitrogen) 17 mg/dL (9.8-20.1); Calc. Creatinine Clearance 71 mL/min (70-130); Calcium 9.7 mg/dL (7.8-10.44); Carbon Dioxide 27 mmol/L (23-31); Chloride 102 mmol/L (98-107); Estimated GFR 48; Glucose 91 mg/dL (83-110); Magnesium 2.1 mg/dL (1.6-2.6); Potassium 3.6 mmol/L (3.5-5.1); Sodium 138 mmol/L (136-145)
[2022-01-22] MEDS: Furosemide 40 MG TAB PO SCH (08:40)
[2022-01-22] MEDS: Cefdinir 300 MG CAP PO SCH ×2 (08:40→21:37)
[2022-01-22] MEDS: Lisinopril 5 MG TAB PO SCH ×2 (08:41→21:37)
[2022-01-22] MEDS: Lidocaine 5% Patch TD SCH (08:41)
[2022-01-22] MEDS: NIFEdipine XL 30 MG TAB PO SCH (08:41)
[2022-01-22] MEDS ORDERED: guaiFENesin 200 MG TAB PO PRN (12:12)
[2022-01-22] MEDS: Acetaminophen 500 MG TAB PO PRN (21:36)
[2022-01-22] MEDS: Apixaban 5 MG TAB PO SCH (21:37)
[2022-01-22] MEDS: Rosuvastatin 20 MG TAB PO SCH (21:37)
[2022-01-22] MEDS: Transdermal Patch Removal TOP SCH (21:51)
[2022-01-23 04:42] LABS: #Eosinphils 0.2 thou/uL (0.0-0.7); #Lymphocytes 2.4 thou/uL (1.20-3.40); #Monocytes 1.4 thou/uL (0.11-0.59); #Neutrophils 5.8 thou/uL (1.40-6.50); %Basophils 0.3 % (0.0-1.0); %Eosinophils 1.6 % (0.0-10.0); %Lymphocytes 24.3 % (21.0-51.0); %Monocytes 14.5 % (0.0-10.0); %Neutrophils 59.3 % (42.0-75.0); Hemoglobin 12.7 g/dL (12.0-16.0); Mean Corpuscular HGB CONC 31.9 g/dL (32.0-36.0); Mean Corpuscular Hemoglobin 30.1 pg (27.0-31.0); Mean Corpuscular Volume 94.3 fl (78.0-98.0); Mean Platelet Volume 8.9 fL (7.4-10.4); Platelet Count 252 10x3/uL (130-400); RBC Distribution Width 12.1 % (11.5-14.5); Red Blood Cell (RBC) Count 4.22 mill/uL (4.20-5.40); White Blood Cell (WBC) Count 9.7 10x3/uL (4.8-10.8)
[2022-01-23 05:17] LABS: ALT (SGPT) 29 U/L (8-55); AST (SGOT) 26 U/L (5-34); Albumin 3.1 g/dL (3.4-4.8); Alkaline Phosphatase 87 U/L (40-110); Anion Gap 14 mmol/L (10-20); BUN (Urea Nitrogen) 21 mg/dL (9.8-20.1); Bilirubin, Total 0.2 mg/dL (0.2-1.2); Calc. Creatinine Clearance 70 mL/min (70-130); Calcium 9.5 mg/dL (7.8-10.44); Carbon Dioxide 29 mmol/L (23-31); Chloride 100 mmol/L (98-107); Estimated GFR 47; Globulin 4.2 g/dL (2.4-3.5); Glucose 106 mg/dL (83-110); Magnesium 2.3 mg/dL (1.6-2.6); Phosphorus 4.6 mg/dL (2.3-4.7); Potassium 3.5 mmol/L (3.5-5.1); Protein, Total 7.3 g/dL (5.8-8.1); Sodium 139 mmol/L (136-145)
[2022-01-23] MEDS ORDERED: Potassium Chloride 20 MEQ TAB PO SCH ×2 (08:00→12:00)
[2022-01-23] MEDS: Apixaban 5 MG TAB PO SCH (08:42)
[2022-01-23] MEDS: Lisinopril 5 MG TAB PO SCH (08:43)
[2022-01-23] MEDS: Cefdinir 300 MG CAP PO SCH (08:43)
[2022-01-23] MEDS: NIFEdipine XL 30 MG TAB PO SCH (08:43)
[2022-01-23] MEDS: Lidocaine 5% Patch TD SCH (08:43)
[2022-01-23 16:30] VITALS: BP 134/79; TEMP 98.2
== END 2022-01-23 16:25 | DRG 280 ==
LOC: ERS 14:51 → CCU 17:46 → IMCU/EMU 01-17 15:04 → 2NO 01-21 17:59
PROVIDERS: ADMIT Internal Medicine; ATTEND Internal Medicine
PROC: 5A1935Z Respiratory Ventilation, Less than 24 Consecutive Hours (ICD-10-PCS; principal; 2022-01-15)
PROC: 0D9670Z Drainage of Stomach with Drainage Device, Via Natural or Artificial Opening (ICD-10-PCS; 2022-01-15)
PROC: 02HV33Z Insertion of Infusion Device into Superior Vena Cava, Percutaneous Approach (ICD-10-PCS; 2022-01-15)
PROC: 4A023N7 Measurement of Cardiac Sampling and Pressure, Left Heart, Percutaneous Approach (ICD-10-PCS; 2022-01-19)
PROC: B2151ZZ Fluoroscopy of Left Heart using Low Osmolar Contrast (ICD-10-PCS; 2022-01-19)
PROC: B2111ZZ Fluoroscopy of Multiple Coronary Arteries using Low Osmolar Contrast (ICD-10-PCS; 2022-01-19)
DX: R00.1 Bradycardia, unspecified (principal); G93.41 Metabolic encephalopathy; I21.A1 Myocardial infarction type 2; R57.0 Cardiogenic shock; J96.01 Acute respiratory failure with hypoxia; I46.2 Cardiac arrest due to underlying cardiac condition; I50.23 Acute on chronic systolic (congestive) heart failure; Z68.41 Body mass index [BMI] 40.0-44.9, adult; I42.9 Cardiomyopathy, unspecified; E87.6 Hypokalemia; I11.0 Hypertensive heart disease with heart failure; Z20.822 Contact with and (suspected) exposure to COVID-19; M19.90 Unspecified osteoarthritis, unspecified site; S00.83XA Contusion of other part of head, initial encounter; E66.01 Morbid (severe) obesity due to excess calories; E78.5 Hyperlipidemia, unspecified; R94.31 Abnormal electrocardiogram [ECG] [EKG]; I48.0 Paroxysmal atrial fibrillation; I25.10 Atherosclerotic heart disease of native coronary artery without angina pectoris; Z88.5 Allergy status to narcotic agent; Z88.6 Allergy status to analgesic agent; Z88.8 Allergy status to other drugs, medicaments and biological substances; Z79.899 Other long term (current) drug therapy; Z79.51 Long term (current) use of inhaled steroids; Z79.52 Long term (current) use of systemic steroids; J45.909 Unspecified asthma, uncomplicated
CPT/HCPCS: 36415; 36416; 36556; 36600; 51702; 71045; 71275; 80048; 80053; 80061; 80307; 81001; 82553; 82805; 83735; 84100; 84145; 84443; 85025; 87811; 93005; 93010; 93306; 93458; 93970; 94002; 94003; 96374; 96375; 97139; 99152; 99153; 99292; C1769; C1894; C9113; J1265; J1644; J1650; J2001; J2250; J2704; J3010; J3475; J3480; J7030; J7050; Q9967; U0002